=== PATIENT | male | born 1940 | race Caucasian/White ===

== ENCOUNTER 2020-02-09 08:57 | Observation (INO) | payer OTHER ==
--- OUTSIDE RECORDS SUMMARY | 2020-02-09 09:00 | XMS REPORT | Clinical Summary ---
:1940 Author Organization [facility] Address [address] [place] [address] Care Team Providers Name Role Phone MD Radha Primary Care Provider Allergies Active Allergy Reactions Severity Noted Date Comments Esomeprazole Magnesium 06/23/2016 Other reaction(s): Headache Levofloxacin Other (See Comments) 03/28/2016 Muscle stiffness Esomeprazole Magnesium Other (See Comments) 03/28/2016 Headache/ numbness Pantoprazole Other (See Comments) 03/28/2016 Other r eaction(s): Headache Headache Sulfa (Sulfonamide Other (See Comments) 03/28/2016 H eadache Antibiotics) Medications Medication Sig Dispensed Refills Start Date End Date Status MULTIVIT-MIN/FA/LYC Take 1 0 Active OPEN/LUTEIN tablet by (CENTRUM SILVER mouth daily. ULTRA MEN'S ORAL) acetaminophen Take 325 mg 0 Acti ve (TYLENOL) 325 MG by mouth tablet every 6 (six) hours as needed for fever. tamsulosin (FLOMAX) Take 0.4 mg 12 06/09/2017 Active 0.4 mg by mouth capsule,extended once daily. release 24hr metoprolol TAKE 1 90 tablet 3 06/16/2019 Active succinate XL TABLET BY (TOPROL-XL) 25 mg MOUTH EVERY 24 hr DAY tabletIndications: Chest pain, unspecified type, Paroxysmal atrial fibrillation (HCC) ELIQUIS 5 mg tablet Take 5 mg by 0 04/27/2019 Active mouth 2 (two) times a day. TRELEGY ELLIPTA Inhale 1 3 04/29/2019 Act hao 100-62.5-25 mcg puff once blister with device daily. pantoprazole Take 40 mg 0 04/25/2019 Activ e (PROTONIX) 40 MG EC by mouth tablet daily. ELIQUIS 5 mg TAKE 1 180 tablet 0 11/05/2019 Activ e tabletIndications: TABLET (5 MG Pacemaker, CAD in TOTAL) BY mechoopda artery MOUTH 2 (TWO) TIMES A DAY FOR 90 DAYS. atorvastatin Take 1 90 tablet 0 12/16/2019 Active (LIPITOR) 40 MG tablet (40 tabletIndications: mg total) by Hyperlipidemia, mouth daily. unspecified hyperlipidemia type ranitidine (ZANTAC) Take 150 mg 0 06/17/20 1 Discontinued 150 MG tablet by mouth 2 9 (Ther apy (two) times complete d) a day. Taking 2 tablets twice a day metoprolol Take 1 90 tablet 3 07/01/2018 Disconti nued succinate XL tablet (25 9 (Reord er) (TOPROL-XL) 25 mg mg total) by 24 hr mouth daily. tabletIndications: Chest pain, unspecified type, Paroxysmal atrial fibrillation (HCC) apixaban (ELIQUIS) Take 1 180 tablet 0 12/11/2018 Discontinued 5 mg tablet (5 mg 9 (Reorde r) tabletIndications: total) by Pacemaker, CAD in mouth 2 mechoopda artery (two) times a day for 90 days. atorvastatin TAKE 1 90 tablet 3 02/11/2019 Discon tinued (LIPITOR) 40 MG TABLET BY 0 (Reo rder) tabletIndications: MOUTH EVERY Hyperlipidemia, DAY. unspecified hyperlipidemia type ELIQUIS 5 mg TAKE 1 180 tablet 0 07/20/2019 Disco ntinued tabletIndications: TABLET (5 MG 0 Pacemaker, CAD in TOTAL) BY mechoopda artery MOUTH 2 (TWO) TIMES A DAY FOR 90 DAYS. ELIQUIS 5 mg TAKE 1 180 tablet 0 10/19/2019 Disco ntinued tabletIndications: TABLET (5 MG 0 Pacemaker, CAD in TOTAL) BY mechoopda artery MOUTH 2 (TWO) TIMES A DAY FOR 90 DAYS. Active Problems Problem Noted Date SOB (shortness of breath) 12/17/2018 Paroxysmal atrial fibrillation 01/08/2018 Coronary artery disease involving mechoopda coronary paco ry of mechoopda heart 12/12/2016 without angina pectoris Pacemaker 12/12/2016 Stented coronary artery 12/12/2016 Cardiac pacemaker in situ 10/16/2016 Overview: Last Assessment & Plan: Changed MV Response from 10 to 9 Turned Programmed Accelerometer OFF Enrolled in [facility] ~ 1 yr for device follow up; or edelmira ier if needed more PM adjustment. 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 Last Assessment & Plan: S/p [place] [employer] dual PM implant (0 10/05/2016) Bradycardia 06/23/2016 Chest pain 06/23/2016 Chronic coronary artery disease 06/23/2016 Dizziness 06/23/2016 Hyperlipidemia 06/23/2016 Palpitations 06/23/2016 Presence of stent in coronary artery 06/23/2016 Syncope 06/23/2016 Last Assessment & Plan: No recurrence after dual chamber PM impl ant Ventricular premature beats 06/23/2016 Encounters Date Type Specialty Care Team Description 12/16/2019 Orders Only Cardiology Anthony Grady MA Hyperlipidemia , unspecified hyperlipidemia type 11/05/2019 Refill Cardiology Renato Arciniega, Med Refill PhD 10/18/2019 Refill Cardiology Renato Arciniega Med Refill PhD 08/18/2019 Hospital Encounter Procedural DemianRenato Bradyc ardia Cardiology PhD 07/20/2019 Refill Cardiology Demian Scientology SSwapnil, Med Refill PhD 06/17/2019 Office Visit Cardiology Lalo Dunne Chronic coronar y artery disease (Primary Dx); MD Marita Paroxysmal atri al fibrillation (HCC); Cardiac pacemak er in situ; Stented coronar y artery 06/15/2019 Refill Cardiology Lalo Dunne Med Maddie Kirkland MD 05/19/2019 Hospital Encounter Procedural Sadaf Arciniegash SSae Kraft Cardiology PhD 05/19/2019 Hospital Encounter Procedural Demian Scientology SChino Kraftc thien Cardiology PhD 02/17/2019 Hospital Encounter Procedural Demian Scientology SSwapnil, Chinoc thien; Cardiology MD PhD Syncope, unspec ified syncope type after 02/08/2019 Family History Medical History Relation Name Comments No Known Problems Brother No Known Problems Father No Known Problems Maternal Aunt No Known Problems Maternal Grandfather No Known Problems Maternal Grandmother No Known Problems Maternal Uncle No Known Problems Mother No Known Problems Paternal Aunt No Known Problems Paternal Grandfather No Known Problems Paternal Grandmother No Known Problems Paternal Uncle No Known Problems Sister Relation Name Status Comments Brother Father Maternal Aunt Maternal Grandfather Maternal Grandmother Maternal Uncle Mother Paternal Aunt Paternal Grandfather Paternal Grandmother Paternal Uncle Sister Social History Tobacco Use Types Packs/Day Years Used Date Former Smoker Cigarettes 1.5 20 Quit: 06/17/19 99 Smokeless Tobacco: Never Used Tobacco Cessation: Counseling Given: No Alcohol Use Drinks/Week oz/Week Comments Not Currently Sex Assigned at Date Recorded Not on file Job Start Date Occupation Industry Not on file Not on file Not on file Travel History Travel Start Travel End No recent travel history available. Last Filed Vital Signs Vital Sign Reading Time Taken Comments Blood Pressure 110/64 06/17/2019 2:55 PM CDT Pulse 60 06/17/2019 2:55 PM CDT Temperature - - Respiratory Rate - - Oxygen Saturation - - Inhaled Oxygen Concentration - - Weight 79.4 kg (175 lb) 06/17/2019 2:55 PM CDT Height 175.3 cm (5' 9") 06/17/2019 2:55 PM CDT Body Mass Index 25.84 06/17/2019 2:55 PM CDT Plan of Treatment Date Type Specialty Care Team Description 06/15/2020 Office Visit Cardiology Lalo Dunne MD [address] [place], [place] [address] [phone] Health Maintenance Due Date Last Done Comments SHINGLES VACCINES (#1) 1989 65+ PNEUMOCOCCAL VACCINE (1 of 2 - PCV13) 2004 INFLUENZA VACCINE 04/17/2020 Implants Implanted Type Area Carbide Grinder Device Shelf Model / Identifier Expiration Serial / Date Lot Accolade Mri Pacemaker - [id number] Cardiac N/A: [place] 07/08/2018 [id number] / Implanted: 10/05/2016 at [facility] (Quantity not on file) Pac emaker N/A SCIENTIFIC- CRM [id number] / Generators [id number] Ingevity Mri Pacing Lead 45cm - [id number] Cardiac Pacing N/A: Silverio OBRIEN 09/02/2018 [id number] / Implanted: 10/05/2016 at [facility] (Quantity not on file) Karime ds or N/A SCIENTIFIC- CRM [id number] / Electrodes or [id number] Accessories Ingevity Mri Pacing Lead Is-1 Bipolar 59cm - [id number] Cardiac P acing N/A: [place] 07/18/2018 7742 / Implanted: 10/05/2016 at [facility] (Quantity not on file) Karime ds or N/A SCIENTIFIC- CRM [id number] / Electrodes or [id number] Accessories Hip Implant Hip Implant System System Procedures Procedure Name Priority Date/Time Associated Diagnosis Comme nts ECG 12-LEAD Routine 06/17/2019 1:56 PM Paroxysmal atrial Res ults for this CDT fibrillation (HC C) procedure are in Chronic coronary the results artery disease section. after 02/08/2019 Results ECG 12 lead (06/17/2019 1:56 PM CDT) Pathologist Sig nature Ventricular rate 60 [facility] Atrial rate 535 [facility] [place] interval 248 [facility] QRSD interval 78 [facility] QT interval 398 [facility] QTC interval 398 [facility] QRS axis 1 32 [facility] T wave axis 60 [facility] EKG impression Atrial-paced rhythm [facility] with prolonged AV conduction-Abnormal ECG-In automated comparison with ECG of 17-DEC-2018 13:03,-No significant change was found- Specimen Narrative Performed At This result has an attachment that is no t available. 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
[2020-02-09 09:17] VITALS: BMI 23.6
[2020-02-09] MEDS: ENOXAPARIN 80 MG/0.8 ML SQ SCH ×4 (10:00→20:39)
[2020-02-09 10:36] VITALS: O2SAT 98
[2020-02-09 10:47] LABS: Basophils % 0.4 % (0-1.3); Hematocrit 44.8 % (39.6-49.0); Lymphocytes % 19.6 % (15.3-44.8); MPV 8.7 fL (7.6-11.3); RBC Red Blood Cell Count 5.12 M/uL (4.33-5.43)
[2020-02-09 10:59] LABS: Creatine Phosphokinase 43 U/L (39-308); Troponin I < 0.02 ng/mL (0.0-0.045)
[2020-02-09 11:11] LABS: Albumin 3.9 g/dL (3.4-5.0); Bilirubin Direct 0.3 mg/dL (0-0.2); Bilirubin Total 1.1 mg/dL (0.2-1.0); Potassium 4.2 mmol/L (3.5-5.1); Protein, Total 7.7 g/dL (6.4-8.2)
--- NOTE | 2020-02-09 11:12 | RAD REPORT ---
EXAM DESCRIPTION: Elen Acuna (2 Views)02/09/2020 10:46 am CLINICAL HISTORY: Chest pain COMPARISON: 2019 FINDINGS: The lungs are moderately hyperaerated. The lungs appear clear of acute infiltrate. The heart is normal size. Pacemaker leads in place IMPRESSION: No acute abnormalities displayed
--- NOTE | 2020-02-09 11:19 | P.HP ---
Certification for Inpatient Patient admitted to: Observation With expected LOS: <2 Midnights Practitioner: I am a practitioner with admitting privileges, knowledge of patient current condition, hospital course, and medical plan of care. Services: Services provided to patient in accordance with Admission requirements found in Title 42 Section 412.3 of the Code of Federal Regulations Patient History Date of Service: 02/09/20 Reason for admission: CHEST PAIN THIS AM. History of Present Illness: MR QUINTEROS HAS HAD 3 STENTS IN PAST LAST ONE 7 YEARS AGO, HAS HAD PPM IN 2017 FOR A FIB. HAS HAD TWO ST TEST THE LAST ONE ABOUT SIX MONTHS AGO THAT WAS NEGATIVE. HE HAS THE CHEST PAIN ABOUT TWICE A WEEK. DR. KAPADIA HAS DONE [place] WITH STRESS TEST AND IT WAS NEGATIVE. TODAY HIS PAIN WAS MORE SEVERE WITH RADIATION TO ELBOWS AND BP SHOT UP TO 160/119. HE WAS FATIGUED ALSO. NOW HE IS BACK TO HIS NORMAL. Allergies levofloxacin [From Levaquin] Allergy (Mild, Verified 02/09/20 09:35) Rash Sulfa (Sulfonamide Antibio Allergy (Mild, Uncoded 02/09/20 09:36) Rash Home Medications: Apixaban [Eliquis] 1 tab PO BID 02/09/20 Atorvastatin Calcium [Lipitor] 1 tab PO DAILY 02/09/20 Glucosamine/Chondroiti/Xyzz807 [Cosamin Asu Capsule] 1 cap PO BID 02/09/20 Metoprolol Tartrate [Lopressor*] 1 tab PO DAILY 02/09/20 Pantoprazole [Protonix Tab*] 1 tab PO DAILY 02/09/20 Tamsulosin [Flomax*] 1 tab PO DAILY 02/09/20 - Past Medical/Surgical History Has patient received pneumonia vaccine in the past: Yes Diabetic: No -: Hypertension -: Hyperlipidemia -: Pacemaker insertion September 2016 -: enlarged prostate -: Stents -: Pacemaker -: left hip replacement - Family History Mother -: Cancer Notes: intestinal Father -: Cancer Notes: lymphoma - Social History Smoking Status: Never smoker Alcohol use: No CD- Drugs: No Caffeine use: No Place of Residence: Home Review of Systems 10-point ROS is otherwise unremarkable Physical Examination - Vital Signs Temperature: 97 F Blood Pressure: 129/72 Pulse: 69 Respirations: 18 Pulse Ox (%): 97 - Physical Exam General: Alert, In no apparent distress HEENT: Atraumatic, PERRLA, Mucous membr. moist/pink, EOMI, Sclerae nonicteric Neck: Supple, 2+ carotid pulse no bruit, No LAD, Without JVD or thyroid abnormality Respiratory: Clear to auscultation bilaterally, Normal air movement Cardiovascular: Regular rate/rhythm, Normal S1 S2, Other (PPM SINCE 2017) Gastrointestinal: Normal bowel sounds, No tenderness Musculoskeletal: No tenderness Integumentary: No rashes Neurological: Normal gait, Normal speech, Normal strength at 5/5 x4 extr, Normal tone, Normal affect Lymphatics: No axilla or inguinal lymphadenopathy - Studies Laboratory Data (last 24 hrs) 02/09/20 10:32: Sodium 140, Potassium 4.2, BUN 25 H, Creatinine 1.01, Glucose 108 H, Total Bilirubin 1.1 H, AST 19, ALT 30, Alkaline Phosphatase 72, LDL Cholesterol Direct 64 L 02/09/20 10:32: WBC 10.2, Hgb 15.4, Hct 44.8, Plt Count 189 02/09/20 10:32: Troponin I < 0.02 Assessment and Plan - Problems (Diagnosis) (1) Unstable angina Current Visit: Yes Status: Acute Plan: THIS MAY OR MAY NOT BEEN OF CARDIAC ORIGIN. I THINK ST TEST MAY BE OKAY BUT HE SAYS AFTER CHEMICAL STRESS TEST HE GOES INTO A FIB. HE MAY BE BETTER OFF WITH ANGIOGRAM TO GIVEN HIM FINAL ANSWER. LOVENOX SC. ASA DAILY. RESUME ELIQUIS FOR HISTORY OF A FIB. RAISE B NICOLASA TO BID. I AM NOT SURE WHY HE REDUCED TO DAILY. HE MAY BE WITHDRAWING FROM B NICOLASA ALSO. - Advance Directives Does patient have a Living Will: Yes Does patient have a Durable POA for Healthcare: Yes
[2020-02-09] MEDS ORDERED: ACETAMINOPHEN 500 MG TAB PO PRN (17:12)
[2020-02-09 18:25] LABS: CKMB Creatine Kinase MB 1.1 ng/mL (0.3-3.6); Creatine Phosphokinase 33 U/L (39-308); Troponin I < 0.02 ng/mL (0.0-0.045)
[2020-02-09 20:40] VITALS: BP 108/58
--- NOTE | 2020-02-09 20:45 | CON ---
Date of Consultation: 02/09/2020 The patient is admitted by Dr. Garcia on 02/09/2020. Reason For Consultation: Chest pain consistent with angina. History Of Present Illness: Mr. Vazquez is an 79-year-old white male. He has had a history of coronary artery disease status post multiple stents, the last of which was about 8 years ago. He has a histo ry of permanent pacemaker placement, hypertension, dyslipidemia, gastroesophageal reflux disease, and benign prostatic hypertrophy. He also has chronic atrial fibrillation. He is on metoprolol and Ynes axel for that. He also takes Lipitor, Flomax, and Protonix. Apparently over the last few weeks has been having some exertional chest pain, mid-epigastric, occasionally radiating to both shoulders with and without exertion, especially with exertion. He has been under a lot of stress because he had to move his to the custodial and he is very uncomfortable about doing so. He denied any nausea or vomiting or diaphoresis. Denied any PND, orthopnea, pedal edema. Denied any palpitations. He d enied any syncope, although he states that after he has a chest pain sometimes he feels very weak. A pparently, a recent CT scan of the heart that was done in [place] according to him, showed some possi ble blockages in his heart, but catheterization has not been done yet. The patient indicates that he prefers to have a heart catheterization done here locally, especially considering what he is going t hrough right now. Past Medical History: As stated above. Allergies: INCLUDE LEVAQUIN AND SULFA. Medications: Listed earlier. Review of Systems: Negative. Social History: Negative. Family History: Noncontributory. Physical Examination: Vital Signs: Stable. He is in a paced rhythm, afebrile. His initial blood pressure on presentation was 160/119, is now 130/72. HEENT: Negative. Neck: Supple without any bruit, lymphadenopathy, JVD, or thyromegaly. Chest: Clear to auscultation and percussion. Cardiac: Revealed a paced rhythm. No murmurs, gallops, or rubs. Abdomen: Benign. Extremities: Revealed no clubbing, cyanosis, or edema. Neurologic: He was nonfocal. Pulses were present bilaterally distally. Skin: Dry and intact. Impression And Plan: I think Mr. Vazquez is having symptoms consistent with coronary artery disease and angina. He has ruled out for myocardial infarction. He is asymptomatic right now. Has not had any arrhythmias. I am comfortable with him going home, but I think he should increase his beta-tatiana, hold his Eliquis. I had suggested a catheterization for tomorrow morning, but he wants to wait and do it as an outpatient. 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 I tend to agree with that. He has not had any change any chest pain for few hours. I discussed the case with Dr. Garcia. I will send him home on no Eliquis, a higher dose of beta-tatiana and I will s et him up for a catheterization either Sunday or . His other problems including history o f pacemaker placement, hypertension, dyslipidemia, gastroesophageal reflux disease, and benign prosta tic hypertrophy are well controlled. His atrial fibrillation is controlled right now. He is in sinu s rhythm on beta-blockers. ARIC/TANIA Voice ID: [id number] Report ID: [id number]
[2020-02-09] MEDS ORDERED: APIXABAN 5 MG TABLET PO SCH (21:00)
[2020-02-09] MEDS ORDERED: [UNRECOGNIZED DRUG - OTHER] PO SCH (21:00)
[2020-02-09] MEDS ORDERED: METOPROLOL TAR 25 MG TAB PO SCH (21:00)
[2020-02-09 21:44] VITALS: TEMP 98
[2020-02-10] MEDS ORDERED: ATORVASTATIN 40 MG TAB PO SCH (09:00)
[2020-02-10] MEDS ORDERED: ASPIRIN EC 81 MG TAB PO SCH (09:00)
[2020-02-10] MEDS ORDERED: TAMSULOSIN 0.4 MG SR CAP PO SCH (09:00)
[2020-02-10] MEDS ORDERED: PANTOPRAZOLE 40MG TABLET PO SCH (09:00)
--- NOTE | 2020-02-11 06:13 | EKG ---
Test Date: 2020-02-09 Test Time: 20:35:52 Change Control Coordinator: RT-O MEASUREMENT RESULTS: Intervals: Rate: 60 OR: 192 QRSD: 78 QT: 382 QTc: 382 Erath: P: 61 OR: 192 QRS: 3 T: 46 INTERPRETIVE STATEMENTS: Electronic atrial pacemaker Compared to ECG 02/09/2020 11:19:31 Sinus rhythm no longer present Electronically Signed On 02-11-20 06:11:18 CDT by Lj Herring
--- NOTE | 2020-02-11 06:14 | EKG ---
Test Date: 2020-02-09 Test Time: 11:19:31 Selector Packer: JUANIS Hayward MEASUREMENT RESULTS: Intervals: Rate: 60 NM: 204 QRSD: 88 QT: 392 QTc: 392 Forney: P: 52 NM: 204 QRS: -9 T: 47 INTERPRETIVE STATEMENTS: Normal sinus rhythm Normal ECG Compared to ECG 10/11/2015 08:24:49 Sinus bradycardia no longer present Electronically Signed On 02-11-20 06:11:23 CDT by Lj Herring
== END 2020-02-09 21:49 | disposition home or self-care (01) ==
LOC: 2ND 08:57
PROVIDERS: ADMIT Internal Medicine; ATTEND Internal Medicine
DX: I25.110 Atherosclerotic heart disease of native coronary artery with unstable angina pectoris (principal); I10 Essential (primary) hypertension; E78.5 Hyperlipidemia, unspecified; Z95.0 Presence of cardiac pacemaker
CPT/HCPCS: 93005 ×3; 85025; 80048; 36415; 83721; 82550 ×2; 80076; 84484 ×2; 82553 ×2; 71046; J1650 ×2; G0379; G0378 ×2

== ENCOUNTER 2020-02-11 07:41 | Day surgery (SDC) | payer OTHER ==
[2020-02-10 14:02] LABS: Protime INR 1.07
[~2020-02-11 07:41] MED LIST: ATROPINE SULF 1 MG/10 ML SYR IV ONE; FENTANYL CITR 100 MCG/2 ML ONE; HEPA 1000U/500MLS 1,000 UNIT/500 ML BAG IV ONE; LIDOCAINE 1% MPF 30 ML VIAL ONE; MIDAZOLAM HCL 2 MG/2 ML INJ ONE; NA CHLORIDE 0.9% 0 ML ONE; NA CHLORIDE 0.9% 500 ML ONE
--- OUTSIDE RECORDS SUMMARY | 2020-02-11 07:43 | XMS REPORT | Clinical Summary ---
:1940 Author Organization [facility] Address [address] [place] [address] Care Team Providers Name Role Phone MD [...] (5 MG Pacemaker, CAD in TOTAL) BY chemehuevi artery MOUTH 2 (TWO) TIMES A DAY [...] total) by Pacemaker, CAD in mouth 2 chemehuevi artery (two) times a day for 90 days. atorvastatin TAKE 1 90 tablet 3 02/11/2019 Discon tinued (LIPITOR) 40 MG TABLET BY 0 (Reo rder) tabletIndications: MOUTH EVERY Hyperlipidemia, DAY. unspecified hyperlipidemia type ELIQUIS 5 mg TAKE 1 180 tablet 0 07/20/2019 Disco ntinued tabletIndications: TABLET (5 MG 0 Pacemaker, CAD in TOTAL) BY chemehuevi artery MOUTH 2 (TWO) TIMES A DAY FOR 90 DAYS. ELIQUIS 5 mg TAKE 1 180 tablet 0 10/19/2019 Disco ntinued tabletIndications: TABLET (5 MG 0 Pacemaker, CAD in TOTAL) BY chemehuevi artery MOUTH 2 (TWO) TIMES A DAY FOR 90 DAYS. Active Problems Problem Noted Date SOB (shortness of breath) 12/17/2018 Paroxysmal atrial fibrillation 01/08/2018 Coronary artery disease involving chemehuevi coronary paco ry of chemehuevi heart 12/12/2016 without angina pectoris Pacemaker 12/12/2016 Stented coronary artery 12/12/2016 Cardiac pacemaker in situ 10/16/2016 Overview: Last Assessment & Plan: Changed MV Response from 10 to 9 Turned Programmed Accelerometer OFF Enrolled in [facility] ~ 1 yr for device follow up; or edelmira ier if needed more PM adjustment. 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 Last Assessment & Plan: S/p [place] [employer] dual PM implant (0 10/05/2016) Bradycardia [...] ardia Cardiology PhD 07/20/2019 Refill Cardiology Demian Jewish SSwapnil, Med Refill PhD 06/17/2019 Office Visit Cardiology Lalo Dunne Chronic coronar y artery disease (Primary Dx); MD Marita Paroxysmal atri al fibrillation (HCC); Cardiac pacemak er in situ; Stented coronar y artery 06/15/2019 Refill Cardiology Lalo Dunne Med Maddie Kirkland MD 05/19/2019 Hospital Encounter Procedural Sadaf Arciniegash SSae Kraft Cardiology PhD 05/19/2019 Hospital Encounter Procedural Demian Jewish SChino Kraftc thien Cardiology PhD 02/17/2019 Hospital Encounter Procedural Demian Jewish SSwapnil, Chinoc thien; Cardiology MD PhD Syncope, unspec ified syncope type after 02/10/2019 Family History Medical History Relation Name Comments [...] Office Visit Cardiology Lalo Dunne MD [address] [place], [place] [address] [phone] Health Maintenance Due Date Last Done Comments SHINGLES VACCINES (#1) 1989 65+ PNEUMOCOCCAL VACCINE (1 of 2 - PCV13) 2004 INFLUENZA VACCINE 04/17/2020 Implants Implanted Type Area Concrete Buster Operator Device Shelf Model / Identifier Expiration Serial / Date Lot Accolade Mri Pacemaker - [id number] Cardiac N/A: [place] 07/08/2018 L311 / Implanted: 10/05/2016 at [facility] (Quantity not on file) Pac emaker N/A [employer]- CRM [id number] / Generators [id number] Ingevity Mri Pacing Lead 45cm - [id number] Cardiac Pacing N/A: Silverio OBRIEN 09/02/2018 [id number] 45 / Implanted: 10/05/2016 at [facility] (Quantity not on file) Karime ds or N/A SCIENTIFIC- CRM [id number] / Electrodes or [id number] Accessories Ingevity Mri Pacing Lead Is-1 Bipolar 59cm - [id number] Cardiac P acing N/A: [place] 07/18/2018 7742 / Implanted: 10/05/2016 at [facility] (Quantity not on file) Karime ds or N/A SCIENTIFIC- CRM [id number] / Electrodes or [id number] Accessories Hip Implant Hip Implant System System Procedures Procedure Name Priority Date/Time Associated Diagnosis Comme nts ECG 12-LEAD Routine 06/17/2019 1:56 PM Paroxysmal atrial Res ults for this CDT fibrillation (HC C) procedure are in Chronic coronary the results artery disease section. after 02/10/2019 Results ECG 12 lead (06/17/2019 1:56 PM CDT) Pathologist Sig nature Ventricular rate 60 [facility] Atrial rate 535 [facility] [place] interval 248 [facility] QRSD interval 78 [facility] QT interval 398 [facility] QTC interval 398 [facility] QRS axis 1 32 [facility] T wave axis 60 [facility] EKG impression Atrial-paced rhythm [facility] with prolonged AV conduction-Abnormal ECG-In automated comparison with ECG of 17-DEC-2018 13:03,-No significant change was found- Specimen Narrative Performed At This result has an attachment that is no t available. 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
[2020-02-11 08:49] VITALS: TEMP 97.2
[2020-02-11 10:38] VITALS: BP 121/69; O2SAT 96
--- NOTE | 2020-02-11 22:38 | OP ---
Surgeon: Lj Herring MD Clinical Data Management Manager: Dennise Ramsey. Patient will remain in the hospital for 2 hours, he will go home after that. He will see me in the o ffice in the next 2 to 4 weeks. The case was discussed with Dr. Garcia and his son. Reason For Admission: Left heart catheterization, selective coronary arteriogram. Indications: Unstable angina and history of coronary artery disease. History Of Present Illness: Mr. Vazquez is an 79-year-old male, has had a stent of the ostium of the LA D many years ago. At that time, he had about 30% left main stenosis. He was admitted to the [facility] a couple of days ago with unstable angina, but he was on Eliquis. We decided to hold this and sche duled outpatient heart catheterization. Description Of Procedure: Patient was admitted to the microbiology laboratory manager today as an outpatient, prepped and d raped in the routine sterile fashion. He was given Versed for sedation. He was accessed in the [facility] t groin with a 6-Kazakh sheath without any complication. Angiography there was normal. Angio-Seal w as used to close the case. An AL1 catheter was used 6-Kazakh to cannulate the left main with a very anterior takeoff. It was found to have a 20% to 30% left main stenosis. His LAD stent was widely pa tent. His circumflex was normal. A JR4 was used to cannulate the RCA. The RCA was normal. Small, nondominant. Complications: There were no complications. Blood Loss: Blood loss was 5 mL. Anesthesia: Total conscious sedation with 30 minutes. Final Diagnosis: Minimal coronary artery disease. Patent LAD stent. Plan: Continue medical therapy. ARIC/MARIA EL Voice ID: [id number] Report ID: [id number]
== END 2020-02-11 10:15 | disposition home or self-care (01) ==
LOC: CCL 07:41
DX: I25.110 Atherosclerotic heart disease of native coronary artery with unstable angina pectoris (principal); I48.20 Chronic atrial fibrillation, unspecified; I10 Essential (primary) hypertension; E78.5 Hyperlipidemia, unspecified; K21.9 Gastro-esophageal reflux disease without esophagitis; N40.0 Benign prostatic hyperplasia without lower urinary tract symptoms; Z95.5 Presence of coronary angioplasty implant and graft; Z95.0 Presence of cardiac pacemaker; Z88.2 Allergy status to sulfonamides; Z88.3 Allergy status to other anti-infective agents
CPT/HCPCS: 93005; 36415; 85610; 85730; 93454; C1893; C1760; J2250 ×2; J3010; J7040; J0583

== ENCOUNTER 2020-09-10 15:00 | Emergency (ER) | payer OTHER ==
--- OUTSIDE RECORDS SUMMARY | 2020-09-10 15:02 | XMS REPORT | Continuity of Care Document ---
:1940 Author Organization [facility] t Address [address] [place] [address] Dr. [address] [place] [address] Care Team Providers Name Role Phone Radha AUSTIN Primary Care Physician Vibha AUSTIN, R. Attending Clinician Michel PACHECO Attending Clinician Unavailable Demian AUSTIN PhD, S. Attending Clinician Ysabel PACHECO Attending Clinician Unavailable Payers Payer Name Policy Type Policy Effective Date Expiration Date Sour ce Number AETNA MEDICAREAETNA [id number] 2013 [place] MED[place] H[place]/PPO 00:00:00 Methodis t [id number] -PresentHMO Problems Condition Condition Condition Status Onset Resolution Last Treating Co mments Source Name Details Category Date Date Treatment Clinician Date SOB SOB Disease Active [place] (shortness (shortness 4-02 Me thodi of breath) of breath) 00:00: st 00 Paroxysmal Paroxysmal Disease Active [place] atrial atrial 4-24 Methodi fibrillati fibrillati 00:00: st on on 00 Coronary Coronary Disease Active [place] artery artery 28 Methodi disease disease 00:00: st involving involving 00 [place] coronary coronary artery of artery of [place] heart heart without without angina angina pectoris pectoris Pacemaker Pacemaker Disease Active Rolan ston 12-12 Methodi 00:00: st 00 Stented Stented Disease Active [facility] coronary coronary 3 Method i artery artery 00:00: st 00 Cardiac Cardiac Disease Active Overview: [place] pacemaker pacemaker 30 Last Meth juan carlos in situ in situ 00:00: Assessmen st 00 t & Plan: Changed MV Response from 10 to 9Turned Programme d Accelerom eter [place] harmony ed in [facility] RTC ~ 1 yr for device follow up; or earlier if needed more PM adjustmen t.AP 96%, STOCK REPLENISHER <1% on DDDR @ LR 60 bpm 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 10-05 Assessmen Methodi bradycardi bradycardi 00:00: t & Plan: st a a 00 S/p [place] [employer] dual PM implant (10/05/19 17) Bradycardi Bradycardi Disease Active 2015-09 [place] a a 0-07 Methodi 00:00: st 00 Chest pain Chest pain Disease Active 2015-09 [place] 0-07 Methodi 00:00: st 00 Chronic Chronic Disease Active 2015-09 [facility] coronary coronary 0-07 Method i artery artery 00:00: st disease disease 00 Dizziness Dizziness Disease Active 2015-09 Rolan ston 0-07 Methodi 00:00: st 00 Hyperlipid Hyperlipid Disease Active 2015-09 [place] emia emia 0-07 Methodi 00:00: st 00 Palpitatio Palpitatio Disease Active 2015-09 [place] ns ns 0-07 Methodi 00:00: st 00 Presence Presence Disease Active 2015-09 [place] of stent of stent 0-07 Method i in in 00:00: st coronary coronary 00 artery artery Syncope Syncope Disease Active 2015-09 [facility] 0-07 Assessmen Methodi 00:00: t & Plan: st 00 No recurrenc e after dual chamber PM implant Ventricula Ventricula Disease Active 2015-09 H [place] r r 0-07 Methodi premature premature 00:00: st beats beats 00 Allergies, Adverse Reactions, Alerts Allergy Allergy Status Severity Reaction(s) Onset Inactive Treating Comm ents Source Name Type Date Date Clinician Esomepra Propensi Active 2015-09 Other [place] zole ty to 0-07 reaction( Methodi Magnesiu adverse 00:00: s): st m reaction 00 Headache s to drug Levoflox Propensi Active Other (See Muscle [place] acin ty to Comments) 7-12 stiffness Meth juan carlos adverse 00:00: st reaction 00 s to drug Esomepra Propensi Active Other (See Headache/ Swann zole ty to Comments) 7-12 numbness Metho di Magnesiu adverse 00:00: st m reaction 00 s to drug Pantopra Propensi Active Other (See 0 Other Ho [place] zole ty to Comments) 712 reaction( Meth juan carlos adverse 00:00: s): st reaction 00 HeadacheH s to eadache drug Sulfa Propensi Active Other (See 0 Headache Ho santiago (Sulfona ty to Comments) 7 Metho di mide adverse 00:00: st Antibiot reaction 00 ics) s to drug Family History Family Member Diagnosis Comments Start Date Stop Date Source Natural brother No Known Problems [place] Moravian Natural father No Known Problems Rolan stophan Moravian Maternal aunt No Known Problems [place] Maternal grandfather No Known Problems Swann Moravian Maternal grandmother No Known Problems Swann Moravian Maternal uncle No Known Problems Rolan stophan Moravian Natural mother No Known Problems Rolankristy gonsalves Moravian Paternal aunt No Known Problems [place] Moravian Paternal grandfather No Known Problems Swann Moravian Paternal grandmother No Known Problems Swann Moravian Paternal uncle No Known Problems Rolankristy gonsalves Moravian Natural sister No Known Problems Rolan gonsalves Moravian Social History Social Habit Start Date Stop Date Quantity Comments Source Sex Assigned At [facility] ethodist Cigarettes smoked 2019-06-17 2019-06-17 Swann Moravian current (pack per 00:00:00 00:00:00 day) - Reported Cigarette 2019-06-17 2019-06-17 Shree Lloyd ist pack-years 00:00:00 00:00:00 Tobacco use and 2019-06-17 2019-06-17 Never used [facility] ethodist exposure 00:00:00 00:00:00 Alcohol intake 2019-06-17 2019-06-17 Ex-drinker [facility] thodist 00:00:00 00:00:00 (finding) History of tobacco 1999-06-17 Current smoker [place] Moravian use 00:00:00 Smoking Status Start Date Stop Date Source Former smoker 2019-06-17 00:00:00 2019-06-17 00:00:00 Shree Lloydist Medications Ordered Filled Start Stop Current Ordering Indication Dosage Frequency Signature Comments Components Source Medication Medication Date Date Medication? Clinician (SIG) Name Name atorvastati 2019-09 Yes Hyperlipide TAKE 1 Shree n (LIPITOR) 0-06 juan, TABLET BY Met hodi 40 mg 00:00: unspecified MOUTH st tablet 00 hyperlipide EVERY DAY juan type apixaban 2020-0 Yes CAD in 5mg Q.5D Take 1 [place] (Eliquis) 5 04-14 [place] tablet (5 M ethodi mg tablet 00:00: artery mg total) s t 00 by mouth 2 (two) times a day. apixaban 2019-0 2020- No CAD in 5mg Q.5D Take 1 [place] (Eliquis) 5 04-09 [place] tablet (5 Methodi mg tablet 00:00: 00:00 artery mg total) st 00 :00 by mouth 2 (two) times a day. Eliquis 5 2020- No CAD in TAKE 1 Rolan ston mg tablet 04-07 [place] TABLET (5 Me thodi 00:00: 00:00 artery MG TOTAL) st 00 :00 BY MOUTH 2 (TWO) TIMES A DAY FOR 90 DAYS. atorvastati 2019- 2020- No Hyperlipide TAKE 1 Shree n (LIPITOR) 03-25 juan, TABLET BY Me thodi 40 mg 00:00: 00:[address] tablet 00 :00 hyperlipide EVERY DAY juan type atorvastati 2019-0 2020- No Hyperlipide 40mg QD Take 1 Shree n (LIPITOR) 12-15 juan, tablet (40 M ethodi 40 MG 00:00: 00:00 unspecified mg total) st tablet 00 :00 hyperlipide by mouth juan type daily. ELIQUIS 5 2020- No CAD in TAKE 1 Rolan ston mg tablet 11-05 [place] TABLET (5 Me thodi 00:00: 00:00 artery MG TOTAL) st 00 :00 BY MOUTH 2 (TWO) TIMES A DAY FOR 90 DAYS. ELIQUIS 5 2020- No CAD in TAKE 1 Rolan ston mg tablet 10-19 [place] TABLET (5 Me thodi 00:00: 00:00 artery MG TOTAL) st 00 :00 BY MOUTH 2 (TWO) TIMES A DAY FOR 90 DAYS. ELIQUIS 5 2018-09 2020- No CAD in TAKE 1 Rolan ston mg tablet 09-19 [place] TABLET (5 Me thodi 00:00: 00:00 artery MG TOTAL) st 00 :00 BY MOUTH 2 (TWO) TIMES A DAY FOR 90 DAYS. MULTIVIT-RI 2018-09 Yes 1{tbl} Take 1 [place] N/FA/LYCOPE 0-01 tablet by Met hodi N/LUTEIN 14:53: mouth st (CENTRUM 35 daily. SILVER ULTRA MEN'S ORAL) acetaminoph 2018-09 Yes 325mg Q6H Take 325 [place] en 0-01 mg by Methodi (TYLENOL) 14:53: mouth st 325 MG 35 every 6 tablet (six) hours as needed for fever. metoprolol Yes Paroxysmal TAKE 1 Swann succinate 9-30 atrial TABLET BY Met hodi XL 00:00: fibrillatio MOUTH st (TOPROL-XL) 00 n (HCC) EVERY DAY 25 mg 24 hr tablet TRELEGY Yes 1{puff} QD Inhale 1 Rolan ston ELLIPTA 8-13 puff once Methodi 100-62.5-25 00:00: daily. st mcg blister 00 with device ELIQUIS 5 2019- No 5mg Q.5D Take 5 mg [place] mg tablet 04-27-24 by mouth 2 Met hodi 00:00: 00:00 (two) st 00 :00 times a day. pantoprazol Yes 40mg QD Take 40 mg Swann e 8- by mouth Methodi (PROTONIX) 00:00: daily. st 40 MG EC 00 tablet atorvastati 2020- No Hyperlipide TAKE 1 Swann n (LIPITOR) 02-11-31 juan, TABLET BY Nh thjuan carlos 40 MG 00:00: 00:[address] tablet 00 :00 hyperlipide EVERY DAY. juan type tamsulosin Yes .4mg QD Take 0.4 Rolan ston (FLOMAX) 9-23 mg by Methodi 0.4 mg 00:00: mouth once st capsule,ext 00 daily. ended release 24hr Procedures This patient has no known procedures. Plan of Care Planned Activity Planned Date Details Comments Source Future Scheduled 2020-04-17 INFLUENZA VACCINE Dayami chisholm Moravian Test 00:00:00 [code = INFLUENZA VACCINE] Future Scheduled 2004 65+ PNEUMOCOCCAL Shree Moravian Test 00:00:00 VACCINE (1 of 1 - PPSV23) [code = 65+ PNEUMOCOCCAL VACCINE (1 of 1 - PPSV23)] Future Scheduled 1989 SHINGLES VACCINES (#1) H yoselyn Moravian Test 00:00:00 [code = SHINGLES VACCINES (#1)] Future Scheduled 1955 COVID-19 VACCINE (#1) Ho santiago Moravian Test 00:00:00 [code = COVID-19 VACCINE (#1)] Encounters Start End Encounter Admission Attending Care Care Encounter Source Date/Time Date/Time Type Type Clinicians Facility Department ID 2020-03-16 2020-03-16 [facility] [id number] [facility] 00:00:00 00:00:[address] 2020-02-16 2020-02-16 [facility] [id number] [facility] 00:00:00 00:00:[address] 2020-02-16 2020-02-16 [facility] [id number] [facility] 00:00:00 00:00:[address] Results This patient has no known results.
--- OUTSIDE RECORDS SUMMARY | 2020-09-10 15:02 | XMS REPORT | Clinical Summary ---
:1940 Author Organization [facility] Address [address] [place] [address] Care Team Providers Name Role Phone MD [...] Active OPEN/LUTEIN tablet by (CENTRUM SILVER mouth ULTRA MEN'S ORAL) daily. acetaminophen Take 325 mg 0 Acti ve [...] pain, unspecified type, Paroxysmal atrial fibrillation (HCC) TRELEGY ELLIPTA Inhale 1 3 04/29/2019 Act hao 100-62.5-25 mcg puff once blister with device daily. pantoprazole Take 40 mg 0 04/25/2019 Activ e (PROTONIX) 40 MG EC by mouth tablet daily. apixaban (Eliquis) Take 1 180 tablet 3 04/14/2020 Active 5 mg tablet (5 tabletIndications: mg total) Pacemaker, CAD in by mouth 2 [place] artery (two) times a day. atorvastatin TAKE 1 90 tablet 0 06/22/2020 Active (LIPITOR) 40 mg TABLET BY tabletIndications: MOUTH EVERY Hyperlipidemia, DAY unspecified hyperlipidemia type atorvastatin TAKE 1 90 tablet 3 02/11/2019 Discon tinued (LIPITOR) 40 MG TABLET BY 0 (Reo rder) tabletIndications: MOUTH EVERY Hyperlipidemia, DAY. unspecified hyperlipidemia type ELIQUIS 5 mg tablet Take 5 mg 0 04/27/2019 Discontinued by mouth 2 0 (Cost of (two) times medicati on) a day. ELIQUIS 5 mg TAKE 1 180 tablet 0 07/20/2019 Disco ntinued tabletIndications: TABLET (5 0 Pacemaker, CAD in MG TOTAL) [place] artery BY MOUTH 2 (TWO) TIMES A DAY FOR 90 DAYS. ELIQUIS 5 mg TAKE 1 180 tablet 0 10/19/2019 Disco ntinued tabletIndications: TABLET (5 0 Pacemaker, CAD in MG TOTAL) [place] artery BY MOUTH 2 (TWO) TIMES A DAY FOR 90 DAYS. ELIQUIS 5 mg TAKE 1 180 tablet 0 11/05/2019 Disco ntinued tabletIndications: TABLET (5 0 Pacemaker, CAD in MG TOTAL) [place] artery BY MOUTH 2 (TWO) TIMES A DAY FOR 90 DAYS. atorvastatin Take 1 90 tablet 0 12/16/2019 Discon tinued (LIPITOR) 40 MG tablet (40 0 tabletIndications: mg total) Hyperlipidemia, by mouth unspecified daily. hyperlipidemia type atorvastatin TAKE 1 90 tablet 0 03/25/2020 Discon tinued (LIPITOR) 40 mg TABLET BY 0 tabletIndications: MOUTH EVERY Hyperlipidemia, DAY unspecified hyperlipidemia type Eliquis 5 mg TAKE 1 180 tablet 0 04/07/2020 Disco ntinued tabletIndications: TABLET (5 0 ( Cost of Pacemaker, CAD in MG TOTAL) me dication) [place] artery BY MOUTH 2 (TWO) TIMES A DAY FOR 90 DAYS. apixaban (Eliquis) Take 1 180 tablet 3 04/09/2020 Discontinued 5 mg tablet (5 0 (Reorder) tabletIndications: mg total) Pacemaker, CAD in by mouth 2 [place] artery (two) times a day. Active Problems Problem Noted Date SOB (shortness of breath) 12/17/2018 Paroxysmal atrial fibrillation 01/08/2018 Coronary artery disease involving [place] coronary paco ry of [place] heart 12/12/2016 without angina pectoris Pacemaker 12/12/2016 Stented coronary artery 12/12/2016 Cardiac pacemaker in situ 10/16/2016 Overview: Last Assessment & Plan: Changed MV Response from 10 to 9 Turned Programmed Accelerometer OFF Enrolled in [facility] ~ 1 yr for device follow up; or edelmira ier if needed more PM adjustment. 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 Last Assessment & Plan: S/p [employer] dual PM implant (0 10/05/2016) Bradycardia 06/23/2016 Chest pain 06/23/2016 Chronic coronary artery disease 06/23/2016 Dizziness 06/23/2016 Hyperlipidemia 06/23/2016 Palpitations 06/23/2016 Presence of stent in coronary artery 06/23/2016 Syncope 06/23/2016 Last Assessment & Plan: No recurrence after dual chamber PM impl ant Ventricular premature beats 06/23/2016 Encounters Date Type Specialty Care Team Description 06/22/2020 Refill Cardiology Lalo Dunne Refill MD Marita 04/14/2020 Refill Cardiology Joseph Pearson MA 04/09/2020 Orders Only Cardiology Michel, Pacemaker; JUNIOR Espinal CAD in [place] a rtery 04/07/2020 Refill Cardiology Renato Arciniega Med Refill MD PhD 03/25/2020 Refill Cardiology Lalo Dunne Refill MD Marita 03/16/2020 Hospital Encounter Procedural Renato Arciniega Bradyc ardia Cardiology PhD 02/16/2020 Hospital Encounter Procedural Renato Arciniega Bradyc ardia Cardiology PhD 02/16/2020 Hospital Encounter Procedural Renato Arciniega Bradyc ardia Cardiology MD PhD 12/16/2019 Orders Only Cardiology Anthony Grady MA Hyperlipidemia , unspecified hyperlipidemia type 11/05/2019 Refill Cardiology Renato Arciniega Med Refill PhD 10/18/2019 Refill Cardiology Renato Arciniega Med Refill PhD after 09/10/2019 Surgical History Surgery Date Site/Laterality Comments CORONARY ANGIOPLASTY CARDIAC CATHETERIZATION GA CATH PLACEMENT & NJX 03/28/2016 N/A Procedur e: Cv selective CORONARY ART ANGIO IMG S&I coron cheri angiography; Surgeon: Lalo Dunne MD; Location: [facility] Ca th Lab Invasive Locatio n; Service: Cardiovascular CARDIAC ELECTROPHYSIOLOGY 10/05/2016 N/A Proced ure: Ep ppi generator insertion dual; Surgeon: Renato Arciniega MD PhD; Location: [facility] Financial Administrative Assistant Invasive Location; Service: Cardiovascular; Laterality: N/A; PPI DUAL IMPLANT PROCEDURE [facility] Medical devices from this surgery are in the Implants section. INSERT / REPLACE / REMOVE PACEMAKER Medical History Medical History Date Comments Arrhythmia Coronary artery disease Hyperlipidemia Hypertension COPD (chronic obstructive pulmonary disease) ([facility]) Family History Medical History Relation Name Comments [...] Assigned at Date Recorded Not on file Last Filed Vital Signs Not on file Plan of Treatment Health Maintenance Due Date Last Done Comments COVID-19 VACCINE (#1) 1955 SHINGLES VACCINES (#1) 1989 65+ PNEUMOCOCCAL VACCINE (1 of 1 - PPSV23) 2004 INFLUENZA VACCINE 04/17/2020 Implants Implanted Type Area Adult Education Instructor Device Shelf Model / Identifier Expiration Serial / Date Lot Accolade Mri Pacemaker - [id number] Cardiac N/A: [place] 07/08/2018 [id number] / Implanted: 10/05/2016 at [facility] (Quantity not on file) Pac emaker N/A SCIENTIFIC- CRM [id number] / Generators [id number] Ingevity Mri Pacing Lead 45cm - [id number] Cardiac Pacing N/A: B [place] 09/02/2018 [id number] 45 / Implanted: 10/05/2016 at [facility] (Quantity not on file) Karime ds or N/A SCIENTIFIC- CRM [id number] / Electrodes or [id number] Accessories Ingevity Mri Pacing Lead Is-1 Bipolar 59cm - [id number] Cardiac P acing N/A: JEREMIAH 07/18/2018 [id number] / Implanted: 10/05/2016 at [facility] (Quantity not on file) Karime ds or N/A SCIENTIFIC- CRM [id number] / Electrodes or [id number] Accessories Hip Implant Hip Implant System System Results Not on fileafter 09/10/2019 Advance Directives For more information, please contact: [phone] Type Date 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
[2020-09-10] MEDS ORDERED: TETANUS & DIPHTHERIA TOX,ADULT 0.5 ML VIAL ONE (15:56)
--- NOTE | 2020-09-10 15:57 | RAD REPORT ---
EXAM DESCRIPTION: CT - [id number] - 09/10/2020 3:45 pm CLINICAL HISTORY: Trauma, head and neck injury. Head injury COMPARISON: No comparisons TECHNIQUE: Axial 5 mm thick images of the head were obtained. Axial 2 mm thick images of the cervical spine were obtained with sagittal and coronal reconstruction images generated and reviewed. All CT scans are performed using dose optimization technique as appropriate and may include automated exposure control or mA/KV adjustment according to patient size. FINDINGS: CT HEAD WITHOUT CONTRAST: No acute hemorrhage, hydrocephalus or extra-axial collection is identified.No areas of brain edema or midline shift. 2 cm polyp or mucous retention cyst right maxillary antrum.The paranasal sinuses and mastoids are oth erwise clear.The calvarium is intact. Left posterior scalp hematoma. CT CERVICAL SPINE WITHOUT CONTRAST: No fracture or subluxation.Moderate lower cervical degenerative changes.No prevertebral soft tissues swelling is identified. IMPRESSION: No acute intracranial or cervical spine findings. Moderate lower cervical degenerative changes.
--- NOTE | 2020-09-10 16:01 | RAD REPORT ---
EXAM DESCRIPTION: RAD - Chest Single View - 09/10/2020 3:39 pm CLINICAL HISTORY: syncope Chest pain. COMPARISON: Chest Pa And Lat (2 Views) dated 02/09/2020; Chest Pa And Lat (2 Views) dated 04/16/2019; Chest Pa And Lat (2 Views) dated 12/15/2015; CHEST PA AND LAT 2 VIEW dated 08/18/2014 FINDINGS: Portable technique limits examination quality. The lungs are grossly clear. The heart is normal in size. No displaced fractures. Old left clavicle f racture. Dual lead pacer device is present. IMPRESSION: No acute intrathoracic process suspected.
[2020-09-10 16:04] LABS: Hematocrit 38.9 % (39.6-49.0); RBC Red Blood Cell Count 4.45 M/uL (4.33-5.43)
[2020-09-10 16:05] LABS: Absolute Lymphocytes (CBC) 1.5 K/uL (0.7-4.9); Basophils % 0.4 % (0-1.3); Lymphocytes % 19.4 % (15.3-44.8); MPV 8.9 fL (7.6-11.3)
[2020-09-10 16:21] LABS: Protime INR 1.33
[2020-09-10 16:28] LABS: ALT/SGPT 25 U/L (12-78); AST/SGOT 24 U/L (15-37); Albumin 3.7 g/dL (3.4-5.0); Alkaline Phosphatase 69 U/L (45-117); BUN Blood Urea Nitrogen 22 mg/dL (7-18); Bicarbonate 32 mmol/L (21-32); Bilirubin Direct 0.3 mg/dL (0-0.2); Bilirubin Total 0.9 mg/dL (0.2-1.0); Glucose Level 95 mg/dL (74-106); Magnesium 2.3 mg/dL (1.8-2.4); NT PRO-BNP 161 pg/mL (<450); Potassium 4.1 mmol/L (3.5-5.1); Protein, Total 7.3 g/dL (6.4-8.2); Sodium Level 142 mmol/L (136-145); Troponin (Emerg Dept Use Only) < 0.02 ng/mL (0.0-0.045)
[2020-09-10] MEDS ORDERED: ACETAMINOPHEN 325 MG TABLET ONE (17:23)
--- NOTE | 2020-09-10 17:59 | ER ---
Nurse's Notes [facility] Name: Brian Vazquez Age: 80 yrs Sex: Male : 1940 Arrival Date: 09/10/2020 Time: 15:09 Bed 14 Private MD: Diagnosis: Benign paroxysmal vertigo;Laceration without foreign body of scalp Presentation: 09/10 15:11 Chief complaint: Patient states: Syncope event at home. Hit coffee table on the way ll1 down. + LOC. Has vertigo, VSS for EMS. Coronavirus screen: Client denies travel out of the [place] in the last 14 days. At this time, the client does not indicate any symptoms associated with coronavirus-19. Ebola Screen: Patient denies travel to an Ebola-affected area in the 21 days before illness onset. Initial Sepsis Screen: Does the patient meet any 2 criteria? No. Patient's initial sepsis screen is negative. Does the patient have a suspected source of infection? No. Patient's initial sepsis screen is negative. Risk Assessment: Do you want to hurt yourself or someone else? Patient reports no desire to harm self or others. Onset of symptoms was September 10, 2020. 15:11 Method Of Arrival: EMS: [facility] ll1 15:11 Acuity: IAN 2 ll1 Historical: - Allergies: 15:11 Levaquin; ll1 15:11 pantoprazole; ll1 15:11 Sulfa (Sulfonamide Antibiotics); ll1 - PMHx: 15:11 enlarged prostate; Hyperlipidemia; Pacemaker; PVC's with Angina; ll1 - PSHx: 15:11 Pacemaker; Heart stents; Tonsillectomy; Appendectomy; ll1 - Immunization history:: Adult Immunizations up to date. - Social history:: Smoking status: Patient denies any tobacco usage or history of. Screenin:39 Abuse screen: Denies threats or abuse. Nutritional screening: No deficits noted. ll1 Tuberculosis screening: No symptoms or risk factors identified. Fall Risk Fall in past 12 months (25 points). IV access (20 points). Ambulatory Aid- Crutches/Cane/Walker (15 pts). Gait- Impaired (20 pts.). Total Hand Fall Scale indicates High Risk Score (45 or more points). Fall prevention measures have been instituted. Side Rails Up X 2 Placed Close to Nursing Station Frequent Obs/Assessments Occuring Family Present and informed to notify staff if the need to leave the bedside As available patient and family educated on Fall Prevention Program and Strategies. Assessment: 15:15 General: Appears in no apparent distress. Behavior is calm, cooperative, appropriate ll1 for age. Pain: Complains of pain in head Quality of pain is described as aching. Neuro: Level of Consciousness is awake, alert, obeys commands, Oriented to person, place, time, situation, Appropriate for age Medicare Nurse are equal bilaterally Moves all extremities. Full function Gait is steady, Speech is normal, Facial symmetry appears normal, Reports headache. Cardiovascular: Reports lightheadedness, syncope, Heart tones S1 S2 Capillary refill < 3 seconds Clubbing of nail beds is absent JVD is absent Patient's skin is warm and dry. Pulses are all present. Rhythm is pacemaker. Respiratory: No deficits noted. GI: No deficits noted. Derm: laceration <2 cm back of head. No active bleeding, on eloquis Reports pain. 16:15 Reassessment: No changes from previously documented assessment. Patient and/or family ll1 updated on plan of care and expected duration. Pain level reassessed. 17:15 Reassessment: No changes from previously documented assessment. Patient and/or family ll1 updated on plan of care and expected duration. Pain level reassessed. 18:15 Reassessment: No changes from previously documented assessment. Patient and/or family ll1 updated on plan of care and expected duration. Pain level reassessed. Patient is alert, oriented x 3, equal unlabored respirations, skin warm/dry/pink. Vital Signs: 15:13 BP 145 / 78; Pulse 59; Resp 18; Pulse Ox 99% on R/A; Weight 72.57 kg; Height 5 ft. 9 em1 in. (175.26 cm); Pain 4/10; 15:14 Temp 98.2; ll1 17:00 BP 140 / 68; Pulse 60; Resp 17; Pulse Ox 99% on R/A; ll1 18:35 BP 130 / 72; Pulse 60; Resp 17; Pulse Ox 98% ; ll1 15:13 Body Mass Index 23.63 (72.57 kg, 175.26 cm) em1 ED Course: 15:09 Patient arrived in ED. ll1 15:10 Arm band placed on Patient placed in an exam room, on a stretcher. ll1 15:12 Triage completed. ll1 15:15 Ansley Cam, MALIK is Primary Nurse. ll1 15:17 Bobby King NP is PHCP. pm1 15:17 Vineet Lawson MD is Attending Physician. pm1 15:39 XRAY Chest (1 view) In Process Unspecified. EDMS 15:45 CT Head C Spine In Process Unspecified. EDMS 16:39 Inserted saline lock: 22 gauge in right antecubital area, using aseptic technique. ll1 Blood collected. 16:40 Patient has correct armband on for positive identification. Bed in low position. Call ll1 light in reach. Side rails up X2. environmental monitoring specialist on. Pulse ox on. NIBP on. 17:22 Gait steady with walking around nurses station. Reports "vertigo" with position change. ll1 Kush King NP informed. 18:36 No provider procedures requiring assistance completed. IV discontinued, intact, ll1 bleeding controlled, No redness/swelling at site. Pressure dressing applied. 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 Exp: ll1 01/01/2022. Lot #: [id number]. } Route: IM; Site: right deltoid; 17:55 Follow up: Response: No adverse reaction; RASS: Alert and Calm (0) ll1 17:13 Drug: Tylenol 650 mg {Note: rass 0, pain 7.} Route: PO; ll1 17:55 Follow up: Response: No adverse reaction; Pain is decreased; RASS: Alert and Calm (0) ll1 17:54 Drug: NS 0.9% 500 ml Route: IV; Rate: bolus; Site: right antecubital; ll1 18:37 Follow up: Response: No adverse reaction; RASS: Alert and Calm (0); IV Status: ll1 Completed infusion; IV Intake: 500ml 17:55 Drug: Meclizine 50 mg Route: PO; ll1 18:34 Follow up: Response: No adverse reaction; RASS: Alert and Calm (0) ll1 Point of Care Testin:37 95 with blood work ll1 Ranges: Intake: 18:37 IV: 500ml; Total: 500ml. ll1 Outcome: 17:58 Discharge ordered by . pm1 18:36 Discharged to home ambulatory. ll1 18:36 Condition: stable 18:36 Discharge instructions given to patient, family, Instructed on discharge instructions, follow up and referral plans. medication usage, Demonstrated understanding of instructions, follow-up care, medications, Prescriptions given X 1. 18:37 Patient left the ED. ll1 Signatures: Dispatcher [employer] EDSony Recinos 1 Bobby King NP VETERANS SERVICES SPECIALIST pm1 Ansley Cam RN RN 1
--- NOTE | 2020-09-10 17:59 | EDPHYS ---
Physician Documentation [facility] Name: Brian Vazquez Age: 80 yrs Sex: Male : 1940 Arrival Date: 09/10/2020 Time: 15:09 Bed 14 Private MD: ED Physician Vineet Lawson HPI: 09/10 15:43 This 80 yrs old Male presents to ER via EMS with complaints of Syncope. pm1 15:43 The patient has experienced syncope. Onset: The symptoms/episode began/occurred just pm1 prior to arrival. Duration: This was a single episode. Context: occurred at home, occurred while the patient was standing, Just prior to the episode the patient experienced no apparent symptoms. Associated injury: Head/face: left side of the back of head, laceration. Associated signs and symptoms: Pertinent positives: headache, Pertinent negatives: abdominal pain, chest pain, diarrhea, numbness, shortness of breath, vomiting. Current symptoms: headache. Patient with a history vertigo and has been experiencing it today. He had vertigo yesterday and he last took meclizine at that time. He has not taken any meclizine today. He was standing in his room and then fell backwards hitting his head against a side table. Presenting with laceration to head and headache. Historical: - Allergies: 15:11 Levaquin; ll1 15:11 pantoprazole; ll1 15:11 Sulfa (Sulfonamide Antibiotics); ll1 - PMHx: 15:11 enlarged prostate; Hyperlipidemia; Pacemaker; PVC's with Angina; ll1 - PSHx: 15:11 Pacemaker; Heart stents; Tonsillectomy; Appendectomy; ll1 - Immunization history:: Adult Immunizations up to date. - Social history:: Smoking status: Patient denies any tobacco usage or history of. ROS: 15:43 Constitutional: Negative for fever, chills, and weight loss, Cardiovascular: Negative pm1 for chest pain, palpitations, and edema, Respiratory: Negative for shortness of breath, cough, wheezing, and pleuritic chest pain, Abdomen/GI: Negative for abdominal pain, nausea, vomiting, diarrhea, and constipation, Back: Negative for injury and pain, MS/Extremity: Negative for injury and deformity, Skin: Negative for injury, rash, and discoloration. 15:43 Neuro: Positive for headache, vertigo, Negative for numbness, seizure activity, tingling, weakness. Exam: 15:43 Abdomen/GI: Exam negative for acute changes, Inspection: abdomen appears normal, pm1 Palpation: abdomen is soft and non-tender, in all quadrants. 15:43 Constitutional: This is a well developed, well nourished patient who is awake, alert, and in no acute distress. 15:43 Chest/axilla: Normal chest wall appearance and motion. Nontender with no deformity. No lesions are appreciated. 15:43 Back: No spinal tenderness. No costovertebral tenderness. Full range of motion. Skin: Warm, dry with normal turgor. Normal color with no rashes, no lesions, and no evidence of cellulitis. 15:43 MS/ Extremity: Pulses equal, no cyanosis. Neurovascular intact. Full, normal range of motion. 15:43 Head/face: Noted is no obvious of injury or deformity except a laceration(s), 1.5 cm(s), of the left side of the back of head. 15:43 Cardiovascular: Exam negative for acute changes, Rate: normal, Rhythm: regular, Pulses: no pulse deficits are appreciated, Edema: is not appreciated. 15:43 Respiratory: Exam negative for acute changes, respiratory distress, shortness of breath. 15:43 Neuro: Exam negative for acute changes, Orientation: is normal, Mentation: is normal, Motor: is normal, moves all fours. Vital Signs: 15:13 BP 145 / 78; Pulse 59; Resp 18; Pulse Ox 99% on R/A; Weight 72.57 kg; Height 5 ft. 9 em1 in. (175.26 cm); Pain 4/10; 15:14 Temp 98.2; ll1 17:00 BP 140 / 68; Pulse 60; Resp 17; Pulse Ox 99% on R/A; ll1 18:35 BP 130 / 72; Pulse 60; Resp 17; Pulse Ox 98% ; ll1 15:13 Body Mass Index 23.63 (72.57 kg, 175.26 cm) em1 Laceration: 16:07 Wound Repair of 1.5cm ( 0.6in ) subcutaneous laceration to left side of the back of pm1 head. Irregularly shaped.. Distal neuro/vascular/tendon intact. Wound prep: Extensive cleansing with hibiclenz by me, Wound irrigation with saline, Wound explored extensively, Copious irrigation. Skin closed with 2 1-0 Sha using staple gun. Patient tolerated well. MDM: 15:19 Patient medically screened. pm1 17:57 Data reviewed: vital signs. Data interpreted: Pulse oximetry: on room air is 99 %. pm1 Interpretation: normal. Counseling: I had a detailed discussion with the patient and/or guardian regarding: the historical points, exam findings, and any diagnostic results supporting the discharge/admit diagnosis, lab results, radiology results, the need for outpatient follow up, to return to the emergency department if symptoms worsen or persist or if there are any questions or concerns that arise at home, staple removal in 10-14 days. 09/10 15:29 Order name: Basic Metabolic Panel; Complete Time: 16:33 pm1 09/10 15:29 Order name: CBC with Diff; Complete Time: 16:33 pm1 09/10 15:29 Order name: LFT's; Complete Time: 16:33 pm1 09/10 15:29 Order name: Magnesium; Complete Time: 16:33 pm1 09/10 15:29 Order name: NT PRO-BNP; Complete Time: 16:33 pm1 09/10 15:29 Order name: PT-INR; Complete Time: 16:33 pm1 09/10 15:29 Order name: CT Head C Spine; Complete Time: 16:07 pm09/10 15:29 Order name: Troponin (emerg Dept Use Only); Complete Time: 16:33 pm1 09/10 15:29 Order name: XRAY Chest (1 view); Complete Time: 16:07 pm09/10 15:29 Order name: EKG; Complete Time: 15:31 pm1 09/10 15:29 Order name: Cardiac monitoring; Complete Time: 18:34 pm1 09/10 15:29 Order name: EKG - Nurse/Tech; Complete Time: 18:34 pm1 09/10 15:29 Order name: IV Saline Lock; Complete Time: 16:02 pm1 09/10 15:29 Order name: Labs collected and sent; Complete Time: 16:02 pm1 09/10 15:29 Order name: O2 Per Protocol; Complete Time: 15:41 pm1 09/10 15:29 Order name: O2 Sat Monitoring; Complete Time: 15:41 pm1 Administered Medications: 16:01 Drug: Tetanus-Diphtheria Toxoid Adult 0.5 ml {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 Exp: ll1 01/01/2022. Lot #: [id number]. } Route: IM; Site: right deltoid; 17:55 Follow up: Response: No adverse reaction; RASS: Alert and Calm (0) ll1 17:13 Drug: Tylenol 650 mg {Note: rass 0, pain 7.} Route: PO; ll1 17:55 Follow up: Response: No adverse reaction; Pain is decreased; RASS: Alert and Calm (0) ll1 17:54 Drug: NS 0.9% 500 ml Route: IV; Rate: bolus; Site: right antecubital; ll1 18:37 Follow up: Response: No adverse reaction; RASS: Alert and Calm (0); IV Status: ll1 Completed infusion; IV Intake: 500ml 17:55 Drug: Meclizine 50 mg Route: PO; ll1 18:34 Follow up: Response: No adverse reaction; RASS: Alert and Calm (0) ll1 Point of Care Testin:37 95 with blood work ll1 Ranges: Critical Glucose Levels:Adult <50 mg/dl or >400 mg/dl <40 mg/dl or >180 mg/dl Disposition: 18:59 Co-signature as Attending Physician, Vineet Lawson MD I agree with the assessment and kdr plan of care. Disposition: 09/10/20 17:58 Discharged to Home. Impression: Benign paroxysmal vertigo, Laceration without foreign body of scalp. - Condition is Stable. - Discharge Instructions: Benign Positional Vertigo, Head Injury, Adult, Stitches, [place], or Adhesive Wound Closure. - Prescriptions for Meclizine 25 mg Oral Tablet - take 1 tablet by ORAL route every 8 hours As needed; 30 tablet. - Medication Reconciliation Form, Thank You Letter, Antibiotic Education, Prescription Opioid Use form. - Follow up: Emergency Department; When: As needed; Reason: Worsening of condition. Follow up: Private Physician; When: 2 - 3 days; Reason: Recheck today's complaints, Continuance of care, Re-evaluation by your physician. - Problem is new. - Symptoms have improved. Signatures: Dispatcher [employer] EDNM Vineet Lawson MD MD kdr Marinas, Patrick, NP ELECTRIC STOVE INSTALLER pm1 Ansley Cam, RN RN ll1 Corrections: (The following items were deleted from the chart) 18:37 17:58 09/10/2020 17:58 Discharged to Home. Impression: Benign paroxysmal vertigo; ll1 Laceration without foreign body of scalp. Condition is Stable. Forms are Medication Reconciliation Form, Thank You Letter, Antibiotic Education, Prescription Opioid Use. Follow up: Emergency Department; When: As needed; Reason: Worsening of condition. Follow up: Private Physician; When: 2 - 3 days; Reason: Recheck today's complaints, Continuance of care, Re-evaluation by your physician. Problem is new. Symptoms have improved. pm1
[2020-09-10] MEDS ORDERED: NA CHLORIDE 0.9% 500 ML ONE (18:04)
[2020-09-10] MEDS ORDERED: MECLIZINE HCL 12.5 MG TAB ONE (18:04)
[2020-09-10 18:42] VITALS: TEMP 98.2
[2020-09-10 18:45] VITALS: BP 130/72; O2SAT 98
== END 2020-09-10 18:37 | disposition home or self-care (01) ==
LOC: ER 15:00
PROC: 0JQ00ZZ Repair Scalp Subcutaneous Tissue and Fascia, Open Approach (ICD-10-PCS; principal; 2020-09-10)
DX: S01.01XA Laceration without foreign body of scalp, initial encounter (principal); W18.39XA Other fall on same level, initial encounter; Y93.89 Activity, other specified; Y92.009 Unspecified place in unspecified non-institutional (private) residence as the place of occurrence of the external cause; Z23 Encounter for immunization; Z95.0 Presence of cardiac pacemaker; Z88.1 Allergy status to other antibiotic agents; Z88.2 Allergy status to sulfonamides; Z88.8 Allergy status to other drugs, medicaments and biological substances
CPT/HCPCS: 93005; 85025; 80048; 36415; 83735; 85610; 80076; 84484; 83880; 70450; 72125; 71045; 90471; 90714; 96360; 99285; 12001; J7040